=== PATIENT | female | born 1960 | race Caucasian/White ===

== ENCOUNTER → 2022-04-28 | Outpatient (CLI) | payer MEDICARE ==
[2022-04-24 08:54] LABS: ANION GAP 19.3 mmol/L (8-16); CALCIUM 9.8 mg/dL (8.4-10.2); CREATININE, SERUM 1.28 mg/dL (0.57-1.11); POTASSIUM 3.3 mmol/L (3.5-5.1)
[~2022-04-28] MED LIST: AMITRIPTYLINE H50 MG PO; ATIVAN1 MG PO; BUPIVACAINE HCL 0.25% 10ML MPF VIAL INJ ONE; BUSPIRONE HCL5 MG PO; CRESTOR5 MG PO; DICLOFENAC35 MG PO; HYDROCHLOROTH12.5 MG PO; HYDROXYZINE HCL50 MG PO; LEVOFLOXACIN 500MG/D5W 100ML 100 ML IV ONE; LORAZEPAM2 MG/1 M1 IVP; MERTAZAPINE PO; METOPROLOL TART50 MG PO; OMEPRAZOLE20 MG PO; PRECOSE25 MG PO; RYBELSUS3 MG PO; TRAZODONE HCL150 MG PO; VENLAFAXINE HCL75 MG PO
== END | disposition home or self-care (01) ==
LOC: OR 05:39 → LAB 08:00 → EDSTATUS 09:30
PROVIDERS: ATTEND Surgery
DX: E11.9 Type 2 diabetes mellitus without complications (principal); E66.01 Morbid (severe) obesity due to excess calories; Z68.41 Body mass index [BMI] 40.0-44.9, adult; G47.33 Obstructive sleep apnea (adult) (pediatric); Z53.8 Procedure and treatment not carried out for other reasons; Z01.810 Encounter for preprocedural cardiovascular examination; Z01.812 Encounter for preprocedural laboratory examination; Z20.822 Contact with and (suspected) exposure to COVID-19
CPT/HCPCS: 0223U; 36415 ×2; 80048; 82948; 93005; J1956

== ENCOUNTER 2022-05-12 08:08 | Inpatient (IN) | payer MEDICARE ==
[2022-05-08 14:54] LABS: CALCIUM 9.5 mg/dL (8.4-10.2); CREATININE, SERUM 1.27 mg/dL (0.57-1.11)
[~2022-05-12] VITALS: Ht 160 cm; Wt 106.1 kg
[~2022-05-12 08:08] MED LIST changes: -BUPIVACAINE HCL 0.25% 10ML MPF VIAL INJ ONE
[2022-05-12] MEDS ORDERED: HYDROGEN PEROXIDE 120 ML BTL ONE (10:00)
[2022-05-12] MEDS ORDERED: BUPIVACAINE 0.25% 30ML SDV ONE ×2 (10:00→10:10)
[2022-05-12] MEDS ORDERED: POVIDONE IODINE 0.05% 0.05 % ML PO ONE (12:37)
[2022-05-12] MEDS ORDERED: LIDOCAINE HCL 2% LOCAL INJ 5 ML SDV VIAL INJ ONE (12:37)
[2022-05-12] MEDS ORDERED: PROPOFOL IV EMULSION 10 MG/ML 20 ML VIAL ONE (12:37)
[2022-05-12] MEDS ORDERED: ACETAMINOPHEN 1000 MG/100 ML IV ONE (12:37)
[2022-05-12] MEDS ORDERED: EPHEDRINE SULFATE INJ 50 MG/ML VIAL ONE (12:37)
[2022-05-12] MEDS ORDERED: ROCURONIUM BROMIDE 10 MG/ML 5ML VIAL IV ONE (12:37)
[2022-05-12] MEDS ORDERED: SUGAMMADEX SODIUM 200 MG/2 ML VIAL IV ONE (12:37)
[2022-05-12] MEDS ORDERED: DEXAMETHASONE SOD PHOS INJ 4 MG/ML SDV ONE (12:37)
[2022-05-12] MEDS ORDERED: SEVOFLURANE INHAL SOLN 250 ML PEN BTL ONE (12:37)
[2022-05-12] MEDS ORDERED: ONDANSETRON HCL INJ 2MG/ML 2ML 2 MG/ML VIAL ONE (12:37)
[2022-05-12] MEDS ORDERED: FENTANYL CITRATE/PF 100MCG/2 ML INJ ONE ×2 (12:56→12:58)
[2022-05-12] MEDS ORDERED: MIDAZOLAM HCL 2 MG/2 ML VIAL ONE (12:56)
[2022-05-12] MEDS: ONDANSETRON HCL INJ 2MG/ML 2ML 2 MG/ML VIAL IV PRN ×2 (13:15→21:22)
[2022-05-12] MEDS: SODIUM CHLORIDE 0.9% 1000ML 1,000 ML IV SCH ×2 (13:16→21:32)
[2022-05-12] MEDS: HYDROCODONE/APAP 7.5MG-325MG 1 EA TAB PO PRN (13:19)
[2022-05-12] MEDS: Morphine 2mg Syringe 2 MG/ML SYR IV PRN ×4 (13:20→21:25)
[2022-05-12 13:32] VITALS: BP 126/59
[2022-05-12 13:47] VITALS: BP 126/59
[2022-05-12 13:49] VITALS: BP 126/59
[2022-05-12 15:00] VITALS: BP 146/66
[2022-05-12 20:00] VITALS: BP 143/70
[2022-05-12] MEDS ORDERED: SCOPOLAMINE 1 MG PATCH TOP SCH (20:00)
[2022-05-12] MEDS ORDERED: DEXTROSE 50% SYRINGE 50 ML IV PRN (20:00)
[2022-05-12] MEDS ORDERED: INSULIN LISPRO 100 UNIT/1 ML 3ML VIAL SQ SCH (21:00)
[2022-05-12] MEDS ORDERED: AMITRIPTYLINE HCL 25 MG TAB PO SCH (21:00)
[2022-05-12] MEDS: LORAZEPAM 0.5 MG TAB PO SCH (21:22)
[2022-05-12] MEDS: ENOXAPARIN SOD INJ 40 MG/0.4 ML SYR SC SCH (21:22)
[2022-05-13] VITALS: BP 127/66
[2022-05-13] MEDS: HYDROCODONE/APAP 7.5MG-325MG 1 EA TAB PO PRN ×2 (00:02→04:32)
[2022-05-13] MEDS: Morphine 2mg Syringe 2 MG/ML SYR IV PRN ×2 (02:39→07:28)
[2022-05-13 04:00] VITALS: BP 136/72
[2022-05-13 04:57] LABS: BASOPHILS # (AUTO) 0.1 (0.0-0.1); BASOPHILS % 0.4 % (0.0-1.0); HEMATOCRIT 35.7 % (34.2-44.1); LYMPHOCYTES # (AUTO) 1.3 (1.0-3.2); LYMPHOCYTES % 9.3 % (18.0-39.1); MEAN CORPUSCULAR HEMOGLOBIN 26.2 pg (28-32); MEAN CORPUSCULAR HGB CONC 30.8 g/dL (31-35); MONOCYTES # (AUTO) 1.3 (0.2-0.8); MONOCYTES % 8.9 % (4.4-11.3); NEUTROPHILS # (AUTO) 11.5 (2.1-6.9); NEUTROPHILS % 80.8 % (38.7-80.0); PLATELET COUNT 219 x10e3/uL (140-360); RED CELL DISTRIBUTION WIDTH 14.8 % (11.7-14.4)
[2022-05-13 05:26] LABS: ALBUMIN 3.5 g/dL (3.5-5.0); ALBUMIN/GLOBULIN RATIO 0.7 (0.8-2.0); ANION GAP 17.1 mmol/L (8-16); CREATININE, SERUM 0.95 mg/dL (0.57-1.11); POTASSIUM 3.1 mmol/L (3.5-5.1)
[2022-05-13 06:07] LABS: MAGNESIUM 1.4 MG/DL (1.3-2.1); PHOSPHORUS 2.5 MG/DL (2.3-4.7)
[2022-05-13] MEDS: ONDANSETRON HCL INJ 2MG/ML 2ML 2 MG/ML VIAL IV PRN (07:28)
[2022-05-13] MEDS ORDERED: POTASSIUM CHLORIDE 10MEQ EA PO ONE ×2 (08:00→09:30)
[2022-05-13 08:01] VITALS: BP 139/66
[2022-05-13] MEDS: LORAZEPAM 0.5 MG TAB PO SCH (08:30)
[2022-05-13] MEDS: ENOXAPARIN SOD INJ 40 MG/0.4 ML SYR SC SCH (08:33)
[2022-05-13] MEDS ORDERED: PANTOPRAZOLE SOD 40 MG TABEC PO SCH (09:00)
[2022-05-13] MEDS ORDERED: BUSPIRONE HCL 5 MG TAB PO SCH (09:00)
[2022-05-13] MEDS ORDERED: METOPROLOL TARTRATE 50 MG TAB PO SCH (09:00)
[2022-05-13] MEDS ORDERED: SIMVASTATIN 20 MG TAB PO SCH (09:00)
[2022-05-13] MEDS ORDERED: VENLAFAXINE HCL 100 MG PO SCH (09:00)
== END 2022-05-13 10:40 | disposition home or self-care (01) | DRG 620 ==
LOC: OR 08:08 → PACU V 12:19 → MED/SURG 13:00
PROVIDERS: ADMIT Surgery; ATTEND Surgery
PROC: 0D164ZA Bypass Stomach to Jejunum, Percutaneous Endoscopic Approach (ICD-10-PCS; principal; 2022-05-12 09:59)
DX: E66.01 Morbid (severe) obesity due to excess calories (principal); K76.6 Portal hypertension; R18.8 Other ascites; Z68.41 Body mass index [BMI] 40.0-44.9, adult; G47.33 Obstructive sleep apnea (adult) (pediatric); K21.9 Gastro-esophageal reflux disease without esophagitis; K74.60 Unspecified cirrhosis of liver; Z20.822 Contact with and (suspected) exposure to COVID-19; F32.9 Major depressive disorder, single episode, unspecified; F41.9 Anxiety disorder, unspecified; Z86.16 Personal history of COVID-19; E11.42 Type 2 diabetes mellitus with diabetic polyneuropathy; E11.22 Type 2 diabetes mellitus with diabetic chronic kidney disease; I13.10 Hypertensive heart and chronic kidney disease without heart failure, with stage 1 through stage 4 chronic kidney disease, or unspecified chronic kidney disease; N18.30 Chronic kidney disease, stage 3 unspecified; Z79.4 Long term (current) use of insulin; E11.69 Type 2 diabetes mellitus with other specified complication; E78.5 Hyperlipidemia, unspecified
CPT/HCPCS: 0223U; 36415; 80048; 80053; 82948; 83735; 84100; 85025; 94799; C1713; J1100; J1650; J1956; J2001; J2250; J2270; J2405; J3010; J7030

== ENCOUNTER → 2025-03-15 | Day surgery (SDC) | payer MEDICARE ==
[~2025-03-15] MED LIST changes: +CALCIUM CARBON500 MG PO; +DICLOFENAC POTA50 MG PO; +FENTANYL CITRATE/PF 100MCG/2 ML INJ ONE; +KLONOPIN0.5 MG PO; +LEVOCETIRIZINE D5 MG PO; -LEVOFLOXACIN 500MG/D5W 100ML 100 ML IV ONE; +LIDOCAINE HCL 2% LOCAL INJ 5 ML SDV VIAL INJ ONE; +MAGNESIUM OXID400 MG PO; +METOCLOPRAMIDE HCL 10 MG/2ML VIAL ONE; +MULTI-VITAMIN1 EACH PO; +PANTOPRAZOLE SO40 MG PO; +PROBIOTIC & AC1 EACH PO; +PROPOFOL IV EMULSION 50 ML IV ONE; +SUCRALFATE1 GM PO; +VIT C PO
[2025-03-15] MEDS: LACTATED RINGER'S 1,000 ML ONE (10:23)
[2025-03-15 10:32] VITALS: TEMP 97.5
[2025-03-15 11:00] VITALS: BP 121/66; PULSE 61; RESP 16; O2SAT 100
[2025-03-15 12:31] LABS: CDIFF AG QUIK CHEK NEGATIVE (NEGATIVE); CDIFF TOX QUIK CHEK NEGATIVE (NEGATIVE)
[2025-03-19 19:09] LABS: ENDOMYSIAL ANTIBODIES, IGA Negative (Negative)
[2025-03-19 21:50] LABS: TISSUE TRANSGLUTAMINASE IGA AB <2 U/mL (0-3)
== END | disposition home or self-care (01) ==
LOC: OR 07:05
PROVIDERS: ATTEND Internal Medicine Gastroenterology
DX: K21.00 Gastro-esophageal reflux disease with esophagitis, without bleeding (principal); Z09 Encounter for follow-up examination after completed treatment for conditions other than malignant neoplasm; K44.9 Diaphragmatic hernia without obstruction or gangrene; K29.60 Other gastritis without bleeding; K31.7 Polyp of stomach and duodenum; K31.89 Other diseases of stomach and duodenum; Z98.84 Bariatric surgery status; Z98.0 Intestinal bypass and anastomosis status; D12.2 Benign neoplasm of ascending colon; K52.9 Noninfective gastroenteritis and colitis, unspecified; K62.89 Other specified diseases of anus and rectum; I10 Essential (primary) hypertension; I25.2 Old myocardial infarction; E78.5 Hyperlipidemia, unspecified; E11.9 Type 2 diabetes mellitus without complications; F41.9 Anxiety disorder, unspecified; M19.91 Primary osteoarthritis, unspecified site; R00.1 Bradycardia, unspecified; R63.0 Anorexia; Z68.26 Body mass index [BMI] 26.0-26.9, adult; Z71.3 Dietary counseling and surveillance; Z01.810 Encounter for preprocedural cardiovascular examination; Z79.899 Other long term (current) drug therapy
CPT/HCPCS: 36415; 43239; 45380; 82784; 82948; 83516; 83630; 83993; 86140; 86256; 87045; 87177; 87324; 87328; 87449; 93005; J2003; J2470; J2704; J2765; J3010; J7121; 45378